=== PATIENT | male | born 1950 | race Caucasian/White ===

== ENCOUNTER → 2016-03-17 | Outpatient (CLI) | payer OTHER ==
--- NOTE | 2016-03-17 14:50 | DX ---
Thoracic Spine, 3 views, 10:59 a.m. 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 I'm suspicious that that there is an acute compression of the anterior superior corner of T6. There is a mild low thoracic scoliosis concave to the right. There is subtle l eft paraspinal stripe widening at the level of T5-T6. Impression: Possible acute T5 fracture in a patient with a densely calcified intramural longitudinal ligament. Recommend CT since these patients are at risk for unstable fractures. Results called to Tiny Weiss at 2:43 p.m.
--- NOTE | 2016-03-17 18:43 | CT ---
Unenhanced CT Scan of the Thoracic Spine Clinical History: 65-year-old male who fell on ice landing on his back last night and complaining of back pain, thought to potentially have an acute midthoracic fracture, now presenting for additional a ssessment. Technique: A multidetector unenhanced helical CT scan was obtained from the C6-C7 disk interspace to the caudal aspect of L1, with images reformatted at 1.50 and 4/3 mm increments, and reviewed in bone , lung, and soft tissue windows. Parasagittal and paracoronal reconstructed images are reviewed on t [employer] workstation. The DFOV is 18.0 cm. Dose reduction protocol was used. Comparison Study: Thoracic spine radiographs from earlier this morning at 10:59 a.m. Findings: There is flowing ossification of the anterior longitudinal ligament, consistent with diffu se idiopathic skeletal hyperostosis (DISH), with accompanying osseous ankylosis. There are old mild ventral wedging deformities seen from the T5-T12 levels. There is a sclerotic line along the anteros uperior T6 centrum, with no acute "chalk-stick" fracture lucency. There is degenerative disk desicca tion at T5-T6. There is no posterior malalignment, although there is a mild thoracic kyphosis. There is no prevertebral or epidural hematoma observed. There is no significant central canal stenosis. There is no costovertebral angle disarticulation, and the visualized rib cage is intact. There are s ome dependent atelectatic changes seen posteriorly in the lungs. There is no pneumothorax or pleural hematoma. There is some atherosclerotic calcification of the LAD and left circumflex coronary arter ies (a left circumflex stent may also be present). A small hiatal hernia is present. There is an in completely imaged 4.2 x 4.0 cm hypodense mass associated with the upper pole of the left kidney, with a Hounsfield unit measurement of 4, perhaps representing a cyst. There is also some incompletely im aged left renal parapelvic fullness, with a Hounsfield unit measurement of -1. Sonography is recomme nded to confirm that these are related to simple cysts. There are some postcholecystectomy clips in the right upper quadrant of the abdomen. Impression: 1. DISH of the thoracic spine, with osseous ankylosis, most pronounced from T6 through T12, with no convincing acute fracture identified. If there is further clinical concern, MR imaging could be cons idered. 2. There are incompletely-imaged cystic structures associated with the [id number] pole of the left kidney, and correlation with sonography is recommended. 3. LAD and left circumflex coronary artery atherosclerotic calcification. Results were called to Tiny Chong PA-C. She indicated that the patient is not focally tender in the mid-thoracic spine, however, has more generalized muscle spasm-type pain (after palpating the entirety of the spine and also the scapulae). A test result has been communicated to a licensed care provider and documented in the [email or web address] Critical Result system on 03/17/2016 18:04, Message ID [id number]
== END ==
LOC: CIMAGING 10:47
PROVIDERS: ATTEND Family Medicine
DX: M48.14 Ankylosing hyperostosis [Forestier], thoracic region (principal); W00.0XXA Fall on same level due to ice and snow, initial encounter; N28.1 Cyst of kidney, acquired; I25.10 Atherosclerotic heart disease of native coronary artery without angina pectoris
CPT/HCPCS: 72072-PO

== ENCOUNTER → 2016-03-20 | Outpatient (CLI) | payer OTHER ==
--- NOTE | 2016-03-20 11:35 | DX ---
Right rib series 3 views History: Pain after fall. Comparison: CT and plain film thoracic spine March 17, 2016. Findings: A BB marker is placed in the region of the patient's pain. There is a minimally displaced p osterolateral right seventh rib fracture. Nondisplaced posterolateral right eighth and ninth rib frac tures are noted. Right basilar atelectasis is present with equivocal right pleural effusion. There is no visible pneumothorax. Degenerative change in the spine and findings of DISH are stable. Impression: Minimally displaced lateral right seventh rib fracture with nondisplaced lateral right ei ghth and ninth rib fractures.
== END ==
LOC: CIMAGING 09:11 → EDSTATUS 09:19 → CIMAGING 09:20
PROVIDERS: ATTEND Family Medicine
DX: S22.41XA Multiple fractures of ribs, right side, initial encounter for closed fracture (principal); W00.0XXA Fall on same level due to ice and snow, initial encounter
CPT/HCPCS: 71100-PO